=== PATIENT | female | born 1955 | race Caucasian/White ===

== ENCOUNTER 2017-01-11 13:32 | Emergency (ER) | payer MEDICAID ==
[~2017-01-11] VITALS: Ht 160 cm; Wt 59.0 kg
--- NOTE | 2017-01-11 13:40 | NUR ---
ALONDRA FROM [facility] C/O L HIP AND R KNEE PAIN S/P GLF, -KO. DENIES HEAD AND NECK INJURY. PT AAOX3. HX OF ETOH, POSSIBLY DRANK ALCOHOL THIS AM. VSS. SEEN BY . SAFETY AND COMFORT MEASURES PROVIDED. WILL MONITOR.
--- NOTE | 2017-01-11 13:45 | NUR ---
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
--- NOTE | 2017-01-11 14:00 | NUR ---
Patient does not wish to proceed with medical care recommended by Dr. Car. Patient given information related to possible complications, up to and including , which could occur as a result of leaving the hospital at this time. Patient verbalizes understanding of risks involved due to leaving against medical advice. Patient has signed AMA form.
--- NOTE | 2017-01-11 14:00 | NUR ---
IV removed. Catheter intact and site benign. Pressure and 4x4 applied to site. No bleeding noted.
--- NOTE | 2017-01-11 14:10 | NUR ---
Pt ambulatory with a steady gait using a walker.
[2017-01-11 15:00] VITALS: BP 102/59
== END 2017-01-11 15:01 | disposition left against medical advice (07) ==
LOC: ER 13:33
DX: M25.552 Pain in left hip (principal); M25.561 Pain in right knee; Z53.20 Procedure and treatment not carried out because of patient's decision for unspecified reasons; W18.30XA Fall on same level, unspecified, initial encounter; Y92.89 Other specified places as the place of occurrence of the external cause; Y93.89 Activity, other specified; Y99.8 Other external cause status
CPT/HCPCS: A4606; Z7610